=== PATIENT | female | born 1995 | race Caucasian/White ===

== ENCOUNTER 2022-01-23 23:16 | Emergency (ER) | payer MEDICAID, SELFPAY ==
[2022-01-23 23:22] VITALS: BP 124/77; PULSE 110; RESP 18; TEMP 36.2; O2SAT 97
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
== END 2022-01-24 01:24 | disposition home or self-care (01) ==
PROVIDERS: Emergency Provider Student in an Organized Health Care Education/Training Program
DX: O26.893 Other specified pregnancy related conditions, third trimester (principal); R10.31 Right lower quadrant pain; R10.32 Left lower quadrant pain; Z3A.36 36 weeks gestation of pregnancy
CPT/HCPCS: 99281; 99282

== ENCOUNTER 2022-01-24 16:24 | Outpatient (REF) | payer MEDICAID, SELFPAY ==
[2022-01-24 18:44] LABS: *AMPHETAMINES SCREEN URINE Negative (Negative); *BARBITURATES SCREEN URINE Negative (Negative); *BENZODIAZEPINES SCREEN URINE Negative (Negative); Cannabinoids THC Negative (Negative); Cocaine Screen,Urine Negative (Negative); METHADONE URINE SCREEN Negative (Negative); OPIATES URINE SCREEN Negative (Negative); Tricyclic Antidepressants Negative (Negative)
[2022-01-24 18:48] LABS: COMMENT (LAB VIEW ONLY) 66.09 mg/dL; PROTEIN 17.4 mg/dL; Prot/Crea Ur Ratio 0.26
[2022-01-27 11:58] LABS: HSV 1 DNA Result Negative (Negative); HSV 2 DNA Result Negative (Negative)
[2022-01-27 13:42] LABS: Chlamydia Result Negative (Negative); GC Result Negative (Negative)
[2022-01-30 14:31] LABS: Buprenorphine Negative ng/mL (Cutoff: 5.0); Norbuprenorphine Negative ng/mL (Cutoff: 2.5)
== END 2022-01-24 16:25 | disposition home or self-care (01) ==
LOC: LBN 16:24
PROVIDERS: Visit Provider Advanced Practice Midwife
DX: Z34.93 Encounter for supervision of normal pregnancy, unspecified, third trimester (principal); N90.89 Other specified noninflammatory disorders of vulva and perineum; Z20.2 Contact with and (suspected) exposure to infections with a predominantly sexual mode of transmission; N89.8 Other specified noninflammatory disorders of vagina; R60.9 Edema, unspecified
CPT/HCPCS: 80307; 87491; 87529; 87591; 82565; 84156; 87081; 87480; 87510; 87660

== ENCOUNTER → 2022-01-31 00:38 | Outpatient (CLI) | payer MEDICAID, SELFPAY ==
--- NOTE | 2022-01-31 07:45 | DI.US_ITS ---
Exam(s) US OB ROBERTH WEIGHT EXAM: US OB [facility]ERTH WEIGHT CLINICAL HISTORY: covid during ,U07.1. TECHNIQUE: Transabdominal obstetrical ultrasound performed. COMPARISON: No exams were available for comparison FINDINGS:: Number of fetuses: One. position: Breech Placental location: anterior. No evidence of previa. BIOMETRIC DATA: BPD: 94mm = 38+ 3 weeks HC: 343mm = 39+ 4 weeks AC: 334mm = 37+ 2 weeks FL: 73 mm = 37+ 2 weeks EFW: 3279 Gms = 72% Composite Age: 38+ 1 weeks EDC: February 10 Heart Rate: 152 BPM Amniotic fluid index: 19.8 cm. Amount of fluid is visually within normal limits. IMPRESSION: size and weight are within the high normal range. DATA REPOSITORY:
== END ==
PROVIDERS: Visit Provider Advanced Practice Midwife
DX: U07.1 COVID-19 (principal); O99.891 Other specified diseases and conditions complicating pregnancy
CPT/HCPCS: 76816

== ENCOUNTER 2022-01-31 14:39 | Outpatient (CLI) | payer MEDICAID, SELFPAY ==
[2022-01-31] VITALS (7 sets, daily range): BP systolic 116–128; BP diastolic 63–79; PULSE 92–100; RESP 16; TEMP 36.4
[2022-01-31 15:12] LABS: Source Nasal/Nares
--- NOTE | 2022-01-31 15:53 | W.OBNST ---
Date of service: 01/31/22 Time of Service: 15:53 NST Evaluation Reason for NST Reasons for Nonstress Test: GESTATIONAL HYPERTENSION Gestational Age Gestational Age in Weeks and Days: 37 Weeks and 1Days Test and Monitor Explained Test/Monitor Explained: Test Explained and Monitor Explained Vital Signs Blood Pressure: 128/79 Pulse: 100 Temperature: 97.5 F NST Information Date on Monitor: 01/31/22 Time on Monitor: 14:45 Date off Monitor: 01/31/22 Time off Monitor: 15:15 Total Time on Monitor: 30 NST Interventions: PO Hydration NST Evaluation Patient States Movement: Present FHR Baseline: 130 Variability: Moderate 6-25 bpm Accelerations: 15x15 Decelerations: None NST Results: Reactive Note NST Note Note: Breech presentation identified on US today. trace edema noted and negative urine protein by dip at the office. B.P. 130s/60s at the office. BP during NST 120s/60-70s. RTO 02/03 for External version NST Reviewed and Verified by: Rosa Ag
[2022-01-31 15:55] LABS: COVID-19 PCR Negative (Negative)
== END 2022-01-31 15:50 | disposition home or self-care (01) ==
LOC: BCD 14:40 → OBS 14:49
PROVIDERS: Visit Provider Advanced Practice Midwife
DX: O16.3 Unspecified maternal hypertension, third trimester (principal); O32.1XX0 Maternal care for breech presentation, not applicable or unspecified; Z3A.37 37 weeks gestation of pregnancy; Z01.818 Encounter for other preprocedural examination
CPT/HCPCS: 59025; 87635

== ENCOUNTER 2022-02-10 03:57 | Outpatient (CLI) | payer MEDICAID, SELFPAY ==
[2022-02-10 11:03] LABS: Source Nasal/Nares
[2022-02-10 11:45] LABS: HGB 12.2 g/dL (11.2-15.7); MCH 30.4 pg (27.0-33.0); MCHC 33.9 % (32.0-36.0); MCV 90 fL (80-95); MPV 9.9 fL (8.0-11.0); Platelet Count 197 10^3/uL (130-400); RBC 4.01 10^6/uL (3.93-5.22); RDW 15.1 % (11.7-14.6); RDW-SD 48.9 fL
[2022-02-10 15:10] LABS: COVID-19 PCR Negative (Negative)
== END 2022-02-10 03:58 | disposition home or self-care (01) ==
LOC: LBO 03:57
PROVIDERS: Visit Provider Obstetrics & Gynecology Gynecology
DX: Z01.818 Encounter for other preprocedural examination (principal)
CPT/HCPCS: 36415; 85027; 86850; 86900; 86901; 87635

== ENCOUNTER 2022-02-13 15:26 | Outpatient (REF) | payer MEDICAID, SELFPAY ==
[2022-02-13 15:41] LABS: Source Nasal/Nares
[2022-02-13 20:34] LABS: COVID-19 PCR Negative (Negative)
== END 2022-02-13 15:27 | disposition home or self-care (01) ==
LOC: LBN 15:26
PROVIDERS: Visit Provider Obstetrics & Gynecology
DX: Z01.818 Encounter for other preprocedural examination (principal); Z20.822 Contact with and (suspected) exposure to COVID-19
CPT/HCPCS: 87635

== ENCOUNTER 2022-02-13 15:54 | Inpatient (IN) | payer MEDICAID, SELFPAY ==
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
[2022-02-14] VITALS (12 sets, daily range): BP systolic 103–129; BP diastolic 64–82; PULSE 81–124; RESP 16–17; TEMP 36.6–37.7; TEMPC 36.3; O2SAT 98–100; BMI 38.5
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
[2022-02-14 12:21] LABS: HCT 36.7 % (36.0-46.0); HGB 12.4 g/dL (11.2-15.7); MCH 30.5 pg (27.0-33.0); MCHC 33.8 % (32.0-36.0); MCV 90 fL (80-95); MPV 10.3 fL (8.0-11.0); Platelet Count 193 10^3/uL (130-400); RBC 4.06 10^6/uL (3.93-5.22); RDW-SD 49.3 fL
[2022-02-14] MEDS: Lactated Ringers 1,000 ML 200 ML IV (12:25)
[2022-02-14] MEDS: Lidocaine 1% Multi-Dose 20 ML VIAL (12:26)
[2022-02-14] MEDS: Sodium Citrate 30 ML CUP PO (12:34)
[2022-02-14] MEDS: AZITHROMYCIN 500 MG in Normal Saline 250 ML 250 MG IVPB (13:25)
--- NOTE | 2022-02-14 13:25 | PLAC_PTH ---
PATIENT: Christina Roy LOC: OBS U#:[id number] AGE/SX: 26/F ROOM: OBS.303 RE02/13/[address]: Sandee Alexis DO : 1995 BED: A DIS: 02/17/2022 SPEC #: [id number] RECD: 02/14/22 18:09 STATUS: JASIEL REQ #: [id number] DELILAH: 02/14/22 13:[address]: Sandee Alexis DEPT: Surgical Specimen RECD BY: Mayda Preston ENTERED: 02/14/22 18:10 SP TYPE: PLAC OTHR DR: Unknown,Unknown Tissues: 1 - PLACENTA (3RD TRIMESTER) Procedures: GROSS AND MICRO LEVEL 5 Comments: [id number]
--- NOTE | 2022-02-14 14:04 | W.PM.OBCSECT ---
Date of service: 02/14/22 Time of Service: 14:04 Operative Note Operative Note Delivery Method: Scheduled and Primary NTSV>37 Weeks: No DATE OF PROCEDURE: 02/14/22 PRE-OP DIAGNOSES: at 39 weeks and 1 day, breech presentation POST-OP DIAGNOSES: same (With short umbilical cord) PROCEDURE: Primary low-transverse section SURGEON: Sandee Alexis Environmental Geologist: Nini Mejia Anesthesia: spinal Estimated blood loss (mL): 670 Pathology: other (Placenta) Complications: None Patient was transported to: floor Patient's condition: stable Indications: Term , declined external cephalic version, breech presentation Findings: Delivery of an viable male infant with Apgars 8 and 8. Short umbilical cord. Placenta with succenturiate lobe. Normal-appearing tubes, uterus, ovaries Procedure Description: Patient was taken the operating suite with an IV running where she is placed in a seated position. Spinal anesthesia administered, tested and found to be adequate. She was placed in the dorsal supine position with leftward tilt and prepped and draped in the usual sterile fashion including vaginal preparation. Andino catheter was inserted for continuous bladder drainage. A Pfannenstiel skin incision was made carried down to the underlying fascia. The fascia was then nicked in the midline and the fascial incision extended laterally. The rectus muscles identified split in the midline and the peritoneum identified tented up and entered sharply. Peritoneal incision was then extended superiorly and inferiorly and the bladder blade was inserted. The vesicouterine peritoneum was identified tented up and entered sharply and the bladder flap created. The bladder blade was then reinserted and a low transverse uterine incision was made with a scalpel in the midline and extended bluntly laterally. There is artificial rupture of membranes for clear fluid. The breech was delivered through the incision without difficulty to the point that you could see the scapular wing bilaterally. The right arm was swept across the chest and then was the left arm. In the flexed position the vertex was delivered through the incision. There was noted to be a three-vessel umbilical cord which was clamped x2 and cut and the infant was handed off to the waiting pediatric group. At this point cord blood sample was obtained and the placenta was manually expressed from the uterus. As of note there was a succenturiate lobe and an extremely short umbilical cord noted. At this point the uterus was exteriorized and cleared of all clot and debris. The uterine incision was then closed using 2-0 Vicryl suture in a 2 layer fashion with the first layer being running locked and the second being imbricating. Inspection of the uterine incision was found to be hemostatic. The uterus was returned to the abdomen after inspection of normal-appearing fallopian tubes and ovaries. The incision was then expected again and found to be hemostatic and the abdomen cleared of all clots and debris. The fascial incision was then closed using 0 Vicryl suture in a running fashion subcutaneous tissue irrigated with copious amounts of normal saline. Subcu space reapproximated with 3-0 Vicryl suture and the skin edge reapproximated with 4-0 undyed Monocryl. Steri-Strips and sterile dressing were placed. Uterus was firm and 3 cm below the umbilicus after surgery. Patient was returned to the The center in stable condition with a Andino catheter draining clear yellow urine. Complications: None apparent EBL: 670 mL Fluids: Crystalloid per anesthesia Findings: Delivery of a viable male from the manpreet breech presentation. normal-appearing tubes, ovaries, uterus. Short umbilical cord with placental succenturiate lobe. Pathology: Placenta for examination.
[2022-02-14] MEDS: Oxytocin/Normal Saline 30 UNIT/500 ML BAG 95 UNITS IV (14:23)
--- NOTE | 2022-02-14 14:58 | W.ANESPOSTOP ---
Postoperative Evaluation Date, Time and Location Date Performed: 02/14/22 Time Performed: 02:58 Patient Location: Obstetrics Vital Signs Most Recent Manually Entered Vital Signs: Adult Blood Pressure: 128/72 Heart Rate: 81 Respirations: 16 Oxygen Saturation (%): 99 Temperature (C): 36.3 C Pain Score (0-10 Scale): 0 Assessment Mental Status: Awake (Alert & Oriented to Patient Baseline) Airway and Respiratory Function: Patent airway with normal (patient baseline) respiratory exam Cardiovascular Function: Hemodynamically Stable Hydration Status: Adequately Hydrated Nausea & Vomiting: No Nausea or Vomiting Pain: Pt. Denies Any Pain Peripheral Nerve Block: Patient did not receive a nerve block
[2022-02-14] MEDS: Ketorolac 30 MG/ML VIAL IVP ×2 (15:00→20:50)
[2022-02-14] MEDS: Normal Saline Flush 10 ML SYR IVP ×2 (15:01→20:51)
--- NOTE | 2022-02-14 17:22 | W.PM.OBPNV1 ---
Date of service: 02/14/22 Time of Service: 17:22 Subjective Subjective Interval history: Patient seen and examined 0. She is doing well. She is responding to NSAIDs. We will have routine care. Follow-up CBC. All questions were answered. Exam Physical Exam Vital signs: Temp Pulse Resp BP Pulse Ox 98.4 F 98 H 16 122/82 100 02/14/22 14:46 02/14/22 14:46 02/14/22 14:46 02/14/22 14:46 02/14/22 14:46 Results Hemoglobin/Hematocrit: Hgb 12.4 g/dL (11.2-15.7) 02/14/22 12:10 Hct 36.7 % (36.0-46.0) 02/14/22 12:10 Abnormal Lab Findings: Abnormal Labs 02/14/22 12:10 WBC 13.50 H RDW 15.0 H
[2022-02-14] MEDS: Acetaminophen 325 MG TAB 650 MG PO ×2 (18:13→21:23)
[2022-02-14] MEDS: Docusate Sodium 100 MG CAP PO (20:52)
[2022-02-14] MEDS: Lactated Ringers 1,000 ML 120 ML IV (21:22)
[2022-02-15] VITALS (8 sets, daily range): BP systolic 105–120; BP diastolic 58–72; PULSE 89–121; RESP 14–22; TEMP 36.6–38.1; O2SAT 95–98
[2022-02-15] MEDS: oxyCODONE 5 MG TAB PO ×4 (00:36→22:40)
--- NOTE | 2022-02-15 01:06 | W.PM.OBPNV1 ---
Date of service: 02/15/22 Time of Service: 01:06 Assessment and Plan Assessment and plan (1) Status post primary low transverse section: Status: Acute Assessment and plan: Patient is postoperative day 1 status post primary for breech presentation. Postoperative course is suspicious for tachycardia, and slightly diminished blood pressure. Asymptomatic. Temperature is 100.6. My clinical impression set up at elect. Less likely infectious etiology. Recommend incentive spirometer at regular intervals. Ambulation when appropriate. CBC pending from morning. IV hydration. Continue close monitoring of vital signs, and urine output. Clinically stable. Subjective Subjective Interval history: Complications vital signs this evening consistent with elevated temperature at 100.6. Pulse 1 teens to 120s. Blood pressure is 100s over 60s. And evaluation of the patient. She is alert, oriented, no acute distress. She denies dizziness. She does have some abdominal discomfort related to her incision. She has no shortness of breath. Patient comments: No complaints, Incisional pain and Tolerating diet baby status: Doing well and Nursing well [place] feeding status: Exclusively breast feeding Exam Physical Exam Vital signs: Temp Pulse Resp BP Pulse Ox 100.6 F H 121 H 18 106/58 L 95 02/15/22 00:32 02/15/22 00:07 02/15/22 00:07 02/15/22 00:07 02/15/22 00:07 Vital Signs Reviewed: Yes Notable Details: Tachycardia with stable blood pressure. Urine output 500 cc over the cours Constitutional Constitutional: no acute distress and obese HEENT Exam HEENT Exam: Normal Neck Exam Neck Exam: Normal Respiratory Exam Respiratory Exam: Normal Cardiovascular Exam Cardiovascular Exam: Normal Abdominal Exam Comments: Soft, nontender Fundal Exam Fundus: Below Umbilicus and Firm Extremities Exam Extremity Exam: Normal and Edema (1+ bilateral); negative Calf Tenderness Results Hemoglobin/Hematocrit: Hgb 12.4 g/dL (11.2-15.7) 02/14/22 12:10 Hct 36.7 % (36.0-46.0) 02/14/22 12:10 Abnormal Lab Findings: Abnormal Labs 02/14/22 12:10 WBC 13.50 H RDW 15.0 H
[2022-02-15] MEDS: Acetaminophen 500 MG TAB 1000 MG PO (03:22)
[2022-02-15] MEDS: Ketorolac 30 MG/ML VIAL IVP ×2 (03:22→08:46)
[2022-02-15 06:31] LABS: Abs Immature Grans 0.13 10^3/uL (0.0-0.06); Absolute Basophil Count 0.02 10^3/uL (0.0-0.2); Absolute Eosinophil Count 0.03 10^3/uL (0.0-0.7); Absolute Lymphocyte Count 2.42 10^3/uL (1.2-3.4); Basophils % 0.1; Eosinophils % 0.2; HCT 25.2 % (36.0-46.0); HGB 8.4 g/dL (11.2-15.7); Immature Grans % 0.8; MCH 30.7 pg (27.0-33.0); MCHC 33.3 % (32.0-36.0); MCV 92 fL (80-95); MPV 10.5 fL (8.0-11.0); Monocytes % 6.9; Platelet Count 150 10^3/uL (130-400); RBC 2.74 10^6/uL (3.93-5.22); RDW-SD 49.6 fL; WBC 16.15 10^3/uL (4.4-10.8)
[2022-02-15 06:39] LABS: Absolute Monocyte Count 1.11 10^3/uL (0.1-0.8); Absolute Neutrophil Count 12.44 10^3/uL (1.2-6.7)
[2022-02-15] MEDS: Normal Saline Flush 10 ML SYR IVP (08:48)
--- NOTE | 2022-02-15 09:17 | W.PM.OBPNV1 ---
Date of service: 02/15/22 Time of Service: 09:17 Assessment and Plan Assessment and plan (1) Status post primary low transverse section: Status: Acute Assessment and plan: Postoperative day # status post primary low transverse section1. (2) Postoperative anemia: Status: Acute Assessment and plan: His hemoglobin is 8.4. Stable vital signs. Doubt Ongoing blood loss. Will ambulate, continue to monitor. Subjective Subjective Interval history: Patient seen and examined this morning. Doing well. Pain is well controlled. She has not been up out of bed yet, though has been sitting upright. She denies dizziness, nausea, vomiting. She has been passing gas. Patient's Mood: good baby status: Doing well and Nursing well [place] feeding status: Exclusively breast feeding Exam Physical Exam Vital signs: Temp Pulse Resp BP Pulse Ox 98.4 F 119 H 14 105/59 L 98 02/15/22 08:55 02/15/22 08:55 02/15/22 08:55 02/15/22 08:55 02/15/22 02:38 Vital Signs Reviewed: Yes Notable Details: Urine output. Tachycardia improving. Blood pressure stable. Constitutional Constitutional: no acute distress HEENT Exam HEENT Exam: Normal Neck Exam Neck Exam: Normal Respiratory Exam Respiratory Exam: Normal Cardiovascular Exam Cardiovascular Exam: Normal Abdominal Exam Abdomen: Tender Comments: Soft, active bowel sounds Fundal Exam Fundus: Below Umbilicus and Firm Extremities Exam Extremity Exam: Normal and Edema (2+ B/L) Neurological Exam Neurological Exam: Normal Psychiatric Exam Psychiatric Exam: Normal Results Hemoglobin/Hematocrit: Hgb 8.4 g/dL (11.2-15.7) L D 02/15/22 06:20 Hct 25.2 % (36.0-46.0) L 02/15/22 06:20 Abnormal Lab Findings: Abnormal Labs 02/14/22 02/15/22 12:10 06:20 WBC 13.50 H 16.15 H RBC 2.74 L Hgb 8.4 L D Hct 25.2 L RDW 15.0 H 15.0 H Absolute Neutrophils 12.44 H Absolute Monocytes 1.11 H
[2022-02-15] MEDS: Ibuprofen 600 MG TAB PO ×2 (13:59→22:21)
[2022-02-16 07:25] VITALS: BP 111/67; PULSE 106; RESP 19; TEMP 36.9; O2SAT 97
--- NOTE | 2022-02-16 07:47 | W.PM.OBPNV1 ---
Date of service: 02/16/22 Time of Service: 07:47 Assessment and Plan Assessment and plan (1) Status post primary low transverse section: Status: Acute Assessment and plan: Postoperative. Ambulate.. Anticipate discharge home tomorrow (2) Postoperative anemia: Status: Acute Assessment and plan: Stable vital signs. Asymptomatic Subjective Subjective Interval history: Patient seen and examined this morning. Doing well. Feeling better than yesterday. She has had her Andino catheter removed. She has been ambulatory and she is in the chair on occasion yesterday. She is voiding without difficulty. She has been having some flatus. She is tolerating regular diet and back pain medication. We discussed ongoing support with behavioral health and her health and wellness manager at the office. She is very happy to have that sort of intervention and and would be open to having a counselor. Patient's Mood: good baby status: Doing well and Nursing well Exam Physical Exam Vital signs: Temp Pulse Resp BP Pulse Ox 98.4 F 106 H 19 111/67 97 02/16/22 07:25 02/16/22 07:25 02/16/22 07:25 02/16/22 07:25 02/16/22 07:25 Vital Signs Reviewed: Yes Notable Details: Currently afebrile. Pulse is in a more normal range. BP stable Constitutional Constitutional: no acute distress HEENT Exam HEENT Exam: Normal Neck Exam Neck Exam: Normal Respiratory Exam Respiratory Exam: Normal Cardiovascular Exam Cardiovascular Exam: Normal Abdominal Exam Abdomen: Tender Comments: Soft, bowel sounds are present. Nondistended Fundal Exam Fundus: Below Umbilicus and Firm Extremities Exam Extremity Exam: Normal and Edema (2+ bilateral); negative Calf Tenderness Skin Exam Skin Exam: Normal Neurological Exam Neurological Exam: Normal Psychiatric Exam Psychiatric Exam: Normal Results Hemoglobin/Hematocrit: Hgb 8.4 g/dL (11.2-15.7) L D 02/15/22 06:20 Hct 25.2 % (36.0-46.0) L 02/15/22 06:20 Abnormal Lab Findings: Abnormal Labs 02/14/22 02/15/22 12:10 06:20 WBC 13.50 H 16.15 H RBC 2.74 L Hgb 8.4 L D Hct 25.2 L RDW 15.0 H 15.0 H Absolute Neutrophils 12.44 H Absolute Monocytes 1.11 H
[2022-02-16] MEDS: Acetaminophen 500 MG TAB 1000 MG PO ×2 (09:25→18:54)
[2022-02-16] MEDS: Ibuprofen 600 MG TAB PO ×2 (09:26→18:54)
[2022-02-16] MEDS: Docusate Sodium 100 MG CAP PO (11:48)
[2022-02-16 16:30] VITALS: BP 125/79; PULSE 119; RESP 18; TEMP 36.5; O2SAT 100
[2022-02-16 20:12] VITALS: BP 124/78; PULSE 78; RESP 18; TEMP 36.7; O2SAT 98
[2022-02-17] MEDS: Docusate Sodium 100 MG CAP PO ×2 (00:23→08:21)
[2022-02-17] MEDS: Ibuprofen 600 MG TAB PO ×3 (00:23→14:15)
[2022-02-17 00:30] VITALS: BP 132/84; PULSE 100; RESP 17; TEMP 36.6
--- NOTE | 2022-02-17 01:20 | NUR.NOTE ---
Nursing Note: Pt's bed replaced with m/s bed as the bed would not adjust properly. Pt transferred to new bed is more comfortable. SCD's replaced and both legs elevated slightly
[2022-02-17 04:30] VITALS: BP 135/80; PULSE 111; RESP 19; TEMP 36.9
[2022-02-17] MEDS: Acetaminophen 500 MG TAB 1000 MG PO (04:33)
[2022-02-17] MEDS: Acetaminophen 325 MG TAB (08:20)
--- NOTE | 2022-02-17 08:26 | OBPPV_ITS ---
Date of service: 02/17/22 Time of Service: 08:26 Assessment and Plan Assessment and plan (1) Status post primary low transverse section: Status: Acute Assessment and plan: Postoperative day #2 status post primary low transverse section complicated by postoperative anemia. She is doing well. Clinically improved. Vital signs are stable. Discharge home today. Follow-up in the office in 2 and 6 weeks. Prescriptions for Motrin, Percocet, Colace sent to the pharmacy. (2) Postoperative anemia: Status: Acute Exam Physical Exam Vital signs: Temp Pulse Resp BP Pulse Ox 98.4 F 111 H 19 135/80 98 02/17/22 04:30 02/17/22 04:30 02/17/22 04:30 02/17/22 04:30 02/16/22 20:12 Vital Signs Reviewed: Yes Constitutional Comments: Patient seen and examined this morning. Doing well. Feeling rested. Breast- feeding without difficulty. Discharge home today. HEENT Exam HEENT Exam: Normal Neck Exam Neck Exam: Normal Respiratory Exam Respiratory Exam: Normal Cardiovascular Exam Cardiovascular Exam: Normal Abdominal Exam Abdomen: Tender Comments: Incision clean, dry, intact Fundal Exam Fundus: Below Umbilicus and Firm Extremities Exam Extremity Exam: Edema (2+ bilateral); negative Calf Tenderness or Redness Skin Exam Skin Exam: Normal Psychiatric Exam Psychiatric Exam: Normal Results Hemoglobin/Hematocrit: Hgb 8.4 g/dL (11.2-15.7) L D 02/15/22 06:20 Hct 25.2 % (36.0-46.0) L 02/15/22 06:20 Abnormal Lab Findings: Abnormal Labs 02/14/22 02/15/22 12:10 06:20 WBC 13.50 H 16.15 H RBC 2.74 L Hgb 8.4 L D Hct 25.2 L RDW 15.0 H 15.0 H Absolute Neutrophils 12.44 H Absolute Monocytes 1.11 H
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
[2022-02-17] MEDS: oxyCODONE 5 MG TAB PO (14:15)
[2022-02-17 14:52] VITALS: BP 129/81; PULSE 103; RESP 16; TEMP 36.6; O2SAT 100
== END 2022-02-17 15:40 | disposition home or self-care (01) | DRG 787 ==
PROVIDERS: Admitting Provider Obstetrics & Gynecology; Visit Provider Obstetrics & Gynecology
PROC: 10D00Z1 Extraction of Products of Conception, Low, Open Approach (ICD-10-PCS; CPT 59514; principal; 2022-02-14 10:15)
DX: O32.1XX0 Maternal care for breech presentation, not applicable or unspecified (principal); J98.11 Atelectasis; Z37.0 Single live birth; Z3A.38 38 weeks gestation of pregnancy; Z86.16 Personal history of COVID-19; O12.04 Gestational edema, complicating childbirth; O99.344 Other mental disorders complicating childbirth; F32.A Depression, unspecified; O43.193 Other malformation of placenta, third trimester; O90.81 Anemia of the puerperium; D64.9 Anemia, unspecified; O99.53 Diseases of the respiratory system complicating the puerperium
CPT/HCPCS: 59514; 36415; 85027; 86900; 86901; 85025; 88307; J0456; J1580; J1885; J2370; J2590; J3490

== ENCOUNTER 2022-03-17 02:41 | Emergency (ER) | payer MEDICAID, SELFPAY ==
[2022-03-17 02:46] VITALS: BP 127/68; PULSE 90; RESP 18; TEMP 36.5; O2SAT 99
[2022-03-17] MEDS: Normal Saline 1,000 ML 1000 ML IV (02:56)
--- NOTE | 2022-03-17 03:00 | DI.CT_ITS ---
Exam(s) CT ABDOMEN PELVIS WO EXAM: CT ABDOMEN PELVIS WO CLINICAL HISTORY: right upper abdomen pain. TECHNIQUE: Imaging Protocol: Axial computed tomography images with coronal and sagittal reformatted images were created and reviewed. Oral: no COMPARISON: No exams were available for comparison FINDINGS: ABDOMEN: Lung Bases: Normal where visualized. Liver: Normal density. No measurable mass. Gallbladder and biliary tract: No radiodense calculus or dilation. Pancreas: Normal density, no abnormal calcifications or inflammatory process. Spleen: Normal. Kidneys: Normal size, contour and axis. No radiodense stones or obstructive uropathy. No masses seen. Adrenal glands: No masses seen. Lymph nodes: Within normal limits. Abdominal Aorta: Abdominal portion non-dilated. PELVIS: Bladder: Nearly empty, not well evaluated. Bowel: No obstruction or bowel wall thickening. Appendix normal. Moderate quantity of stool. Peritoneal cavity: No ascites, collection or mesenteric inflammatory response. Reproductive organs: Uterus mildly enlarged, recently . Bones: Within normal limits. Soft tissues: Mild stranding in the lower anterior abdominal wall fat consistent with recent section. No focal abscess or fluid collection. IMPRESSION: Mildly enlarged uterus consistent with recent status. No acute abnormality is identified. RADIATION DOSE DELIVERED: 1,118.18mGy.cm Total DLP DATA REPOSITORY: All CT scans at this facility are submitted to the National Radiology Data Registry (NRDR) Dose Index Registry (DIR) with the [employer] (A[employer]). RADIATION OPTIMIZATION: All CT scans at this facility use at least one of these dose optimization te chniques: automated exposure control; mA and/or kV adjustment per patient size (includes targeted exa ms where dose is matched to clinical indication); or iterative reconstruction.
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
[2022-03-17 03:10] LABS: Abs Immature Grans 0.02 10^3/uL (0.0-0.06); Absolute Basophil Count 0.01 10^3/uL (0.0-0.2); Absolute Eosinophil Count 0.17 10^3/uL (0.0-0.7); Absolute Lymphocyte Count 2.81 10^3/uL (1.2-3.4); Absolute Monocyte Count 0.57 10^3/uL (0.1-0.8); Absolute Neutrophil Count 3.59 10^3/uL (1.2-6.7); Basophils % 0.1; Eosinophils % 2.4; HCT 39.2 % (36.0-46.0); Immature Grans % 0.3; Lymphocytes % 39.2; MCH 29.7 pg (27.0-33.0); MCHC 33.2 % (32.0-36.0); MCV 90 fL (80-95); MPV 9.5 fL (8.0-11.0); Monocytes % 7.9; Neutrophils % 50.1; Platelet Count 227 10^3/uL (130-400); RBC 4.38 10^6/uL (3.93-5.22); RDW 12.5 % (11.7-14.6); RDW-SD 40.9 fL; WBC 7.17 10^3/uL (4.4-10.8)
[2022-03-17 03:17] LABS: ALT 28 U/L (14-59); AST 16 U/L (15-37); Albumin 3.6 g/dL (3.4-5.0); Alkaline Phosphatase 134 U/L (46-116); Anion Gap 6.9 mmol/L (3-11); BUN 21 mg/dL (7-18); Bilirubin, Direct 0.1 mg/dL (0.0-0.2); Bilirubin, Total 0.5 mg/dL (0.2-1.0); CO2 28.1 mmol/L (21.0-32.0); CREATININE 0.9 mg/dL (0.55-1.02); Chloride 105 mmol/L (98-107); Estimated GFR 90.98 (mL/min/1.73m2); Glucose 90 mg/dL (74-106); Lipase 163 U/L (73-393); Potassium 3.7 mmol/L (3.5-5.1); Sodium 140 mmol/L (136-145); Total Protein 7.1 g/dL (6.4-8.2)
[2022-03-17] MEDS: Mylanta Suspension 30 ML CUP PO (03:21)
[2022-03-17] MEDS: Acetaminophen 500 MG TAB 1000 MG PO (03:21)
[2022-03-17 03:24] LABS: Bilirubin Negative (Negative); Blood Moderate (Negative); Clarity Sl Cloudy (Clear); Glucose Negative (Negative); Ketones Negative (Negative); Leukocyte Esterase Moderate (Negative); Nitrite Negative (Negative); Specific Gravity 1.025 (1.005-1.025); Urobilinogen 0.2 EU/dL (Up TO 0.2)
[2022-03-17 03:33] LABS: Bacteria Few HPF (Negative); C & S Indicated? No/Sq. Contamination; Casts Negative LPF (Negative); Crystals Negative HPF (Negative); Epithelial Cells Many HPF (Negative); Mucus Negative (Negative); WBC 20-50 HPF (0-5)
--- NOTE | 2022-03-17 04:45 | DI.VRAD_ITS ---
PROCEDURE INFORMATION: Exam: CT Abdomen And Pelvis Without Contrast Exam date and time: 03/17/2022 3:58 AM Age: 26 years old Clinical indication: Abdominal pain; Localized; Right upper quadrant (ruq); Prior surgery; Surgery type: 1 month ago; Patient HX: Ruq pain TECHNIQUE: Imaging protocol: Computed tomography of the abdomen and pelvis without contrast. Radiation optimization: All CT scans at this facility use at least one of these dose optimization techniques: automated exposure control; mA and/or kV adjustment per patient size (includes targeted exams where dose is matched to clinical indication); or iterative reconstruction. COMPARISON: US OB [facility] WE[facility] 01/31/2022 1:20 PM FINDINGS: Lungs: Lung bases clear. Liver: Grossly unremarkable unenhanced liver. Gallbladder and bile ducts: Normal appearing gallbladder. No calcified gallstones. No biliary dilatation. Pancreas: Grossly unremarkable unenhanced pancreas. Spleen: Grossly unremarkable unenhanced spleen. Adrenal glands: Normal appearing adrenal glands. Kidneys and ureters: Grossly unremarkable unenhanced kidneys. Ureters partially obscured. No suspicious calcifications along the expected ureteral courses. Stomach and bowel: No oral contrast. Stomach partially distended with ingested material. No small bowel dilatation to suggest obstruction. Normal-appearing colon. No evidence of diverticulitis or colitis. Appendix: Fluid-filled appendix partially obscured by close apposition of adjacent small bowel loops but normal in caliber measuring 6 mm. Trace adjacent hazy fat stranding. Intraperitoneal space: Trace fluid in the deep pelvis. No free air. Vasculature: Normal caliber abdominal aorta. Lymph nodes: No pathologically enlarged mesenteric, retroperitoneal, or pelvic sidewall lymph nodes. Urinary bladder: Urinary bladder partially collapsed but grossly unremarkable, as seen. Reproductive: Anteverted uterus, mildly enlarged in keeping with the history of recent . Heterogeneous density in the anterior aspect of the lower uterine wall in the expected location of the incision. Ovaries partially obscured but normal in size. Bones/joints: No acute fracture seen among the bones of the abdomen or pelvis. Soft tissues: Diastasis recti. Small fat containing ventral hernia. Recent low transverse incision noted. No subcutaneous fluid collection or subcutaneous gas. IMPRESSION: 1. Fluid-filled appendix mildly distended to 6 mm, top normal for caliber. Mild adjacent hazy fat stranding. Early or mild appendicitis could perhaps have this appearance although clinical correlation is recommended as the imaging appearance is borderline. 2. Normal-appearing gallbladder. No calcified gallstones or biliary dilatation. 3. Trace fluid in the deep pelvis, nonspecific. Dictated and Authenticated by: Augutso Smith MD. Ordering:JADON Kimbrough MD
[2022-03-17 05:37] VITALS: BP 115/78; PULSE 63; RESP 17; TEMP 36.6; O2SAT 97
== END 2022-03-17 05:23 | disposition home or self-care (01) ==
PROVIDERS: Emergency Provider Emergency Medicine
DX: O90.89 Other complications of the puerperium, not elsewhere classified (principal); R10.11 Right upper quadrant pain; R10.13 Epigastric pain; Z98.890 Other specified postprocedural states
CPT/HCPCS: 80053; 83690; 96360; 96361; 99284; 74176; 81003; 81015; 82248; 85025; 99283

== ENCOUNTER 2022-06-10 06:11 | Day surgery (SDC) | payer MEDICAID, SELFPAY ==
[2022-06-10 06:34] VITALS: BP 116/73; PULSE 84; RESP 16; TEMP 36.6; O2SAT 98
--- NOTE | 2022-06-10 07:18 | PDOC.DSDIS_ITS ---
Date of service: 06/10/22 Time of Service: 07:18 Discharge Plan Disposition Patient Disposition: Home Condition: Good Discharge Details Reason For Visit: Left Index Finger Cyst Attending Provider: Irwin Meadows Primary Care Provider: Unknown,Unknown Home Meds and New Rx's Prescriptions: New acetaminophen 500 mg tablet 500 mg PO Q6H PRN PRN (Reason: pain) Qty: 40 3RF ibuprofen 600 mg tablet 600 mg PO TID PRN (Reason: pain) Qty: 30 3RF Continued cholecalciferol (vitamin D3) 50 mcg (2,000 unit) capsule 50 mcg PO DAILY PNV cmb#95-ferrous fumarate-FA [] 28 mg iron- 800 mcg Tablet 1 tab PO DAILY Discharge Instructions Additional Instructions: Activity: You may use the hand as tolerated. Gentle range of motion and use of hte finger is okay but avoid doing too much too soon. Medications: You should take Tylenol and Ibuprofen for pain relief. This rarely needs anything stronger. You may also apply ice as needed for comfort. Dressings: You should keep the initial dressing on for 2 days. After 2 days, you may remove the dressings and apply a bandaid. Referrals: Irwin Meadows MD [ [facility] STAFF PHYSICIAN] - Activity:: Elevate Remove Dressings/Wound Care:: 48 hours Shower/Bathe:: 48 hours Diet:: As Tolerated Discharge Orders Discharge Orders: Discharge Order (Routine); Ordered 06/10/22 Ordered By: Irwin Meadows
[2022-06-10] MEDS: Lidocaine 1% Pres-Free W/EPI 1/200,000 10 ML VIAL (07:35)
[2022-06-10] MEDS: Sodium Bicarbonate 50 MEQ/50 ML VIAL (07:35)
--- NOTE | 2022-06-10 07:42 | SKI_PTH ---
PATIENT: Christina Roy LOC: [facility] U#:[id number] AGE/SX: 26/F ROOM: RE06/10/[address]: Irwin Meadows MD : 1995 BED: DIS: 06/10/2022 SPEC #: [id number] RECD: 06/10/22 12:28 STATUS: JASIEL REQ #: [id number] DELILAH: 06/10/22 07:[address]: Irwin Meadows DEPT: Surgical Specimen RECD BY: Mayda Preston ENTERED: 06/10/22 12:29 SP TYPE: [facility]OLFGANG HERMOSILLO DR: Unknown,Unknown Tissues: 1 - SKIN CYST/TAG/DEBRIDEMENT Procedures: GROSS AND MICRO LEVEL 3 Comments: [id number]
[2022-06-10 07:50] VITALS: BP 121/87; PULSE 76; RESP 16; TEMP 36.5; O2SAT 99
--- NOTE | 2022-06-10 09:28 | W.PM.OP ---
Date of service: 06/10/22 Time of Service: 07:50 Operative Note Operative Note DATE OF PROCEDURE: 06/10/22 PRE-OP DIAGNOSIS: Left Index Finger Mass POST-OP DIAGNOSIS: same PROCEDURE: Excisional Biopsy of Left Index Finger Mass SURGEON: Irwin Meadows ANESTHESIA TYPE: Local By Surgeon Refer to Anesthesia Record ESTIMATED BLOOD LOSS: 5 PATHOLOGY: other (Samples of mass from left index finger) TOURNIQUET TIME: 0 COMPLICATIONS: None Patient was transported to: same day Patient's condition: stable Indications: I have seen Christina in clinic for symptoms of a mass about the left index finger. The mass persisted and caused pain to direct contact and with use. The symptoms had not responded to conservative measures. I discussed mass excision with the patient. I reviewed the risks of the procedure to include, but not limited to, bleeding, infection, pain, stiffness, recurrence, damage to nerves or vessels. Despite these risks, the patient elected to proceed. Procedure Description: Christina was greeted in the preoperative holding area where the correct side was identified and marked. The consent was reviewed with the patient and signed. All questions were answered. She was taken back to the operating room. The patient was placed into the supine position on the operating room table with the left arm on an arm board. All bony prominences were well padded. No prophylactic antibiotics were administered since this was a clean, elective hand surgical case. The left arm was then prepped with Chloraprep and draped in a standard fashion with stockinette and extremity drape. A timeout to confirm correct identity, side and site, procedure, allergies, anesthesia, and medical concerns was performed. A digital block was then performed using 1% lidocaine with epinephrine and buffered with sodium bicarbonate. This was allowed time to set up completely and was tested before proceeding with the case. A longitudinal incision was then made overlying the mass. The skin was incised sharply. The skin directly overlying this mass was very thin and and truly only encompassed some layers of epidermis. This was removed and the mass was identified. Full-thickness flaps were then elevated to expose it. There appeared to be a capsule but in trying to remove it it fell apart into pieces. These pieces were a fibrous gelatinous mix. There is no invasive characteristics. It measured about 4 mm in diameter. These pieces were removed and sent to pathology. The wound bed was then irrigated aggressively. Any other materials that appeared to be foreign in nature were removed with a rongeur. The skin was then closed using a #4-0 nylon in interrupted fashion. The finger was dressed with Xeroform, 4 x 4, conformer dressing. The patient tolerated the procedure well and was returned to the Same Day Surgery area in a stable condition suffering no known complication.
== END 2022-06-10 08:15 | disposition home or self-care (01) ==
PROVIDERS: Visit Provider Student in an Organized Health Care Education/Training Program
PROC: (CPT 26160; principal; 2022-06-10 07:30)
DX: L98.0 Pyogenic granuloma (principal)
CPT/HCPCS: 11420; 88304

== ENCOUNTER 2022-07-30 11:44 | Emergency (ER) | payer MEDICAID, SELFPAY ==
[2022-07-30 12:03] VITALS: BP 126/84; PULSE 103; RESP 16; TEMP 37.1; O2SAT 96
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
--- NOTE | 2022-07-31 20:05 | W.ED.FU ---
Date of service: 07/31/22 Time of Service: 20:05 Follow Up Plan: Patient called stating she is allergic to azithromycin and nearly all antibiotics. I counseled her as to a course of management without antibiotics for her pharyngitis. I have called in a one-time dose of dexamethasone to her pharmacy. She understands indications to seek reevaluation
== END 2022-07-30 13:15 | disposition home or self-care (01) ==
PROVIDERS: Emergency Provider Emergency Medicine
DX: J02.9 Acute pharyngitis, unspecified (principal)
CPT/HCPCS: 87880; 99283

== ENCOUNTER 2023-10-12 23:54 | Emergency (ER) | payer MEDICAID, SELFPAY ==
[2023-10-13 00:04] VITALS: BP 130/84; PULSE 72; RESP 16; TEMP 37.2; O2SAT 98
--- NOTE | 2023-10-13 00:15 | DI.RAD_ITS ---
Exam(s) XR KNEE RT 3V AP,LAT,KARLOS EXAM: XR KNEE RT 3V AP,LAT,KARLOS CLINICAL HISTORY: generalized pain after running. TECHNIQUE: 2D digital imaging was performed. COMPARISON: No exams were available for comparison FINDINGS: 3 views There is no evidence of fracture or obvious joint effusion. bone density normal. no osseous lesions . no joint space narrowing. no patellar displacement. IMPRESSION: No significant osseous findings. DATA REPOSITORY: RADIATION DOSE DELIVERED:
--- NOTE | 2023-10-13 00:15 | DI.RAD_ITS ---
Exam(s) XR KNEE LT 3V AP,LAT,KARLOS EXAM: XR KNEE LT 3V AP,LAT,KARLOS CLINICAL HISTORY: medial knee pain after running. TECHNIQUE: 2D digital imaging was performed. COMPARISON: CR,XR XR KNEE RT 3V AP,LAT,KARLOS from 10/13/2023 FINDINGS: 3 views No evidence of acute fracture or obvious joint effusion. Bone density normal. No osseous lesions. No degenerative changes. No radiopaque foreign body. IMPRESSION: No acute osseous findings in the knee. No obvious joint effusion. DATA REPOSITORY: RADIATION DOSE DELIVERED:
[2023-10-13] MEDS: Ibuprofen 800 MG TAB PO (00:29)
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
--- NOTE | 2023-10-13 01:50 | DI.VRAD_ITS ---
PROCEDURE INFORMATION: Exam: XR Right Knee Exam date and time: 10/13/2023 12:40 AM Age: 28 years old Clinical indication: Right; Patient HX: Generalized knee pain after running TECHNIQUE: Imaging protocol: Radiologic exam of the right knee. Views: 3 views. COMPARISON: No relevant prior studies available. FINDINGS: Bones/joints: No fracture. No dislocation. No bony erosion or destructive change. No joint effusion. Mild medial compartment narrowing. Soft tissues: No soft tissue air. No radiopaque foreign bodies. IMPRESSION: No acute osseous abnormality. If symptoms persist, follow-up imaging is advised. Dictated and Authenticated by: Luis E Zheng MD. Ordering:JASPER Medina MD
--- NOTE | 2023-10-13 01:51 | DI.VRAD_ITS ---
PROCEDURE INFORMATION: Exam: XR Left Knee Exam date and time: 10/13/2023 12:42 AM Age: 28 years old Clinical indication: Left; Patient HX: Medial knee pain after running TECHNIQUE: Imaging protocol: Radiologic exam of the left knee. Views: 3 views. COMPARISON: No relevant prior studies available. FINDINGS: Bones/joints: No fracture. No dislocation. No bony erosion or destructive change. No joint effusion. Mild medial compartment narrowing. Mild asymmetric sclerosis noted in the medial femoral condyle. No subchondral lucency is observed in the femoral condyles or tibial plateaus. Soft tissues: No soft tissue air. No radiopaque foreign bodies. IMPRESSION: No acute osseous abnormality. If symptoms persist, follow-up imaging is advised. Dictated and Authenticated by: Luis E Zheng MD. Ordering:JASPER Medina MD
== END 2023-10-13 02:28 | disposition home or self-care (01) ==
LOC: ER 10-13 02:19
PROVIDERS: Emergency Provider Student in an Organized Health Care Education/Training Program; PCP Nurse Practitioner Adult Health
DX: M25.562 Pain in left knee (principal); M25.561 Pain in right knee
CPT/HCPCS: 73562; 81025; 99283

== ENCOUNTER 2024-03-15 01:14 | Outpatient (CLI) | payer MEDICAID, SELFPAY ==
--- NOTE | 2024-03-15 | DI.US_ITS ---
Exam(s) US ABDOMEN LIMITED EXAM: US ABDOMEN LIMITED CLINICAL HISTORY: ABD PAIN UPPER, R10.10 TECHNIQUE: Ultrasound abdomen performed using standard protocol. COMPARISON: CT CT ABDOMEN PELVIS WO from 03/17/2022 FINDINGS: PANCREAS: Normal where visualized. LIVER: There is diffuse increased echogenicity of the liver consistent with fatty infiltration. Hepa topetal flow in the Portal Vein. The liver measures in 16.7 cm length. No evidence of a hepatic mass. GALLBLADDER: No evidence of cholelithiasis. No evidence of wall thickening. No pericholecystic fluid identified. BILIARY SYSTEM: Common bile duct measures < 7 mm. No intrahepatic biliary ductal dilation. PAULA'S SIGN: Negative. RIGHT KIDNEY: Kidney is normal in size. No evidence of renal calculi. No evidence of hydronephrosis. No renal mass or cyst identified. ASCITES: None seen. IMPRESSION: Hepatic steatosis. DATA REPOSITORY:
== END 2024-03-15 01:34 ==
LOC: DI 01:14
PROVIDERS: PCP Nurse Practitioner Adult Health; Visit Provider Nurse Practitioner Adult Health
DX: K76.0 Fatty (change of) liver, not elsewhere classified (principal)
CPT/HCPCS: 76705

== ENCOUNTER 2024-04-17 20:42 | Emergency (ER) | payer MEDICAID, SELFPAY ==
[2024-04-17 20:45] VITALS: BP 122/81; PULSE 86; RESP 15; TEMP 36.3; O2SAT 99
[2024-04-17 20:48] VITALS: BP 122/81; PULSE 86; RESP 15; TEMP 36.3; O2SAT 99
[2024-04-17 21:26] LABS: Abs Immature Grans 0.02 10^3/uL (0.0-0.06); Absolute Basophil Count 0.03 10^3/uL (0.0-0.2); Absolute Eosinophil Count 0.15 10^3/uL (0.0-0.7); Absolute Lymphocyte Count 3.47 10^3/uL (1.2-3.4); Absolute Monocyte Count 0.59 10^3/uL (0.1-0.8); Absolute Neutrophil Count 4.69 10^3/uL (1.2-6.7); Basophils % 0.3 %; Eosinophils % 1.7 %; HCT 43.2 % (36.0-46.0); HGB 14.3 g/dL (11.2-15.7); Immature Grans % 0.2 %; Lymphocytes % 38.8 %; MCH 29.6 pg (27.0-33.0); MCHC 33.1 % (32.0-36.0); MCV 89 fL (80-95); MPV 9.3 fL (8.0-11.0); Monocytes % 6.6 %; Neutrophils % 52.4 %; Platelet Count 285 10^3/uL (130-400); RBC 4.83 10^6/uL (3.93-5.22); RDW 12.5 % (11.7-14.6); RDW-SD 41.4 fL; WBC 8.95 10^3/uL (4.4-10.8)
[2024-04-17] MEDS: Ondansetron 4 MG/2 ML VIAL IVP (21:27)
[2024-04-17] MEDS: ACETAMINOPHEN 1,000 MG/100 ML BAG 400 MG IVPB (21:27)
[2024-04-17 21:32] LABS: Bilirubin Negative (Negative); Blood Moderate (Negative); Clarity Sl Cloudy (Clear); Glucose Negative (Negative); Ketones Negative (Negative); Leukocyte Esterase Negative (Negative); Nitrite Negative (Negative); Specific Gravity 1.025 (1.005-1.025); Urobilinogen 0.2 mg/dL (Up to 0.2)
[2024-04-17 21:44] LABS: ALT 41 U/L (14-59); AST 93 U/L (15-37); Albumin 3.7 g/dL (3.4-5.0); Alkaline Phosphatase 75 U/L (46-116); Anion Gap 10.3 mmol/L (3-11); BUN 15 mg/dL (7-18); Bacteria Few HPF (Negative); CO2 27.7 mmol/L (21.0-32.0); CREATININE 1.1 mg/dL (0.55-1.02); Chloride 106 mmol/L (98-107); Crystals Few Amorphous HPF (Negative); Epithelial Cells Rare HPF (Negative); Estimated GFR 70.63 (mL/min/1.73m2); Glucose 93 mg/dL (74-106); Lipase 37 U/L (16-77); Potassium 3.5 mmol/L (3.5-5.1); Sodium 144 mmol/L (136-145); WBC 0-2 HPF (0-5)
[2024-04-17 21:45] LABS: C & S Indicated? No; Casts Negative LPF (Negative); Mucus Moderate (Negative)
[2024-04-17 21:50] LABS: Calcium 9.6 mg/dL (8.5-10.1)
[2024-04-17] MEDS: Famotidine 20 MG TAB 40 MG PO (22:09)
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
== END 2024-04-17 22:09 | disposition home or self-care (01) ==
PROVIDERS: Emergency Provider Physician Assistant; PCP Nurse Practitioner Adult Health
DX: K82.8 Other specified diseases of gallbladder (principal); R10.10 Upper abdominal pain, unspecified
CPT/HCPCS: 36415; 80053; 81025; 83690; 96365; 96375; 99284; 81003; 81015; 85025; J0131; J2405

== ENCOUNTER 2024-04-18 13:03 | Emergency (ER) | payer MEDICAID, SELFPAY ==
[2024-04-18 13:03] VITALS: BP 139/101; PULSE 78; RESP 14; TEMP 37; O2SAT 98
[2024-04-18 13:26] VITALS: BP 118/74; PULSE 74; RESP 16; O2SAT 100
[2024-04-18 13:35] LABS: Bilirubin Negative (Negative); Blood Large (Negative); Clarity Sl Cloudy (Clear); Glucose Negative (Negative); Ketones Negative (Negative); Leukocyte Esterase Negative (Negative); Nitrite Negative (Negative); Specific Gravity >= 1.030 (1.005-1.025); Urobilinogen 0.2 mg/dL (Up to 0.2); pH 5.5 (5-8)
[2024-04-18 13:43] LABS: RBC >50 HPF (0-2); WBC 0-2 HPF (0-5)
[2024-04-18 13:45] LABS: Bacteria Few HPF (Negative); C & S Indicated? No; Casts Negative LPF (Negative); Crystals Negative HPF (Negative); Epithelial Cells Moderate HPF (Negative); Mucus Negative (Negative)
[2024-04-18 13:49] LABS: Abs Immature Grans 0.02 10^3/uL (0.0-0.06); Absolute Basophil Count 0.02 10^3/uL (0.0-0.2); Absolute Eosinophil Count 0.05 10^3/uL (0.0-0.7); Absolute Lymphocyte Count 2.18 10^3/uL (1.2-3.4); Absolute Monocyte Count 0.42 10^3/uL (0.1-0.8); Absolute Neutrophil Count 4.23 10^3/uL (1.2-6.7); Basophils % 0.3 %; Eosinophils % 0.7 %; HCT 46.4 % (36.0-46.0); HGB 15.1 g/dL (11.2-15.7); Immature Grans % 0.3 %; Lymphocytes % 31.5 %; MCH 29.4 pg (27.0-33.0); MCHC 32.5 % (32.0-36.0); MCV 90 fL (80-95); MPV 9.4 fL (8.0-11.0); Monocytes % 6.1 %; Neutrophils % 61.1 %; Platelet Count 289 10^3/uL (130-400); RBC 5.14 10^6/uL (3.93-5.22); RDW 12.3 % (11.7-14.6); RDW-SD 40.9 fL; WBC 6.92 10^3/uL (4.4-10.8)
[2024-04-18 14:01] LABS: ALT 47 U/L (14-59); AST 101 U/L (15-37); Alkaline Phosphatase 78 U/L (46-116); Anion Gap 10.2 mmol/L (3-11); BUN 12 mg/dL (7-18); Bilirubin, Total 0.58 mg/dL (0.2-1.0); CO2 26.8 mmol/L (21.0-32.0); CREATININE 1.1 mg/dL (0.55-1.02); Calcium 9.5 mg/dL (8.5-10.1); Chloride 105 mmol/L (98-107); Estimated GFR 70.63 (mL/min/1.73m2); Glucose 79 mg/dL (74-106); Lipase 47 U/L (16-77); Potassium 3.8 mmol/L (3.5-5.1); Sodium 142 mmol/L (136-145); Total Protein 8.5 g/dL (6.4-8.2)
--- NOTE | 2024-04-18 14:01 | DI.CT_ITS ---
Exam(s) CT ABDOMEN PELVIS W EXAM: CT ABDOMEN PELVIS W CLINICAL HISTORY: abdominal pain epigastric. TECHNIQUE: Imaging Protocol: Axial computed tomography images with coronal and sagittal reformatted images were created and reviewed CONTRAST MATERIAL: Intravenous: Omnipaque 350 Contrast volume:85 ml Oral: / no COMPARISON: CT CT ABDOMEN PELVIS WO from 03/17/2022 FINDINGS: ABDOMEN and PELVIS: Lung Bases: No acute findings. Liver: Normal density. No suspicious mass. Gallbladder and biliary tract: No radiodense calculus. No biliary dilation. Pancreas: Normal density. No abnormal calcifications or inflammatory process. No evidence of mass. Spleen: Normal. Kidneys: Normal size, contour and axis. No radiodense stones. No obstructive uropathy. No suspicious masses seen. Adrenal glands: No masses seen. Vasculature: Abdominal aorta non-dilated. Soft tissues: Unremarkable. Bladder: No gross wall thickening. No calculi.No focal mass. Bowel: No obstruction. No bowel wall thickening. Appendix normal. Normal quantity of stool. Peritoneal cavity: No ascites. No focal collection. No mesenteric inflammatory response. Bones: Unremarkable for age. Reproductive organs: Unremarkable. Lymph nodes: No pathologically enlarged lymph nodes. IMPRESSION:: No acute abnormality in the abdomen or pelvis. RADIATION DOSE DELIVERED: 583.86mGy.cm Total DLP DATA REPOSITORY: All CT scans at this facility are submitted to the National Radiology Data Registry (NRDR) Dose Index Registry (DIR) with the [employer] ([employer]). RADIATION OPTIMIZATION: All CT scans at this facility use at least one of these dose optimization te chniques: automated exposure control; mA and/or kV adjustment per patient size (includes targeted exa ms where dose is matched to clinical indication); or iterative reconstruction.
[2024-04-18] MEDS: Normal Saline - Diluent 50 ML VIAL IJ (14:22)
[2024-04-18] MEDS: Omnipaque 350 MG/ML 100 ML BTL 85 ML IJ (14:24)
[2024-04-18 14:32] VITALS: BP 149/96; PULSE 74; O2SAT 100
[2024-04-18] MEDS: Normal Saline 1,000 ML 1000 ML IV (14:33)
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
[2024-04-18 16:01] VITALS: BP 126/67; PULSE 70; PULSE 71; RESP 20; O2SAT 100
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
[2024-04-18 16:27] VITALS: BP 135/74; PULSE 75; RESP 13; TEMP 37.2; O2SAT 100
== END 2024-04-18 16:37 | disposition home or self-care (01) ==
PROVIDERS: Emergency Provider Student in an Organized Health Care Education/Training Program; PCP Nurse Practitioner Adult Health
DX: R10.10 Upper abdominal pain, unspecified (principal)
CPT/HCPCS: 80053; 83690; 96360; 96361; 99285; 74177; 81003; 81015; 85025; J3490

== ENCOUNTER 2024-04-20 09:33 | Day surgery (SDC) | payer MEDICAID, SELFPAY ==
--- NOTE | 2024-04-19 16:36 | W.PM.DSUDISC ---
Date of service: 04/20/24 Time of Service: 12:50 Discharge Plan Disposition Patient Disposition: Home Condition: Good Discharge Details Reason For Visit: Laparoscopic cholecystectomy Attending Provider: Gio Washington Primary Care Provider: Layla Mendoza Home Meds and New Rx's Prescriptions: Continued cholecalciferol (vitamin D3) 50 mcg (2,000 unit) capsule 50 mcg PO DAILY norgestimate-ethinyl estradiol [Sprintec (28)] 0.25-35 mg-mcg tablet 1 tab PO DAILY Qty: 84 3RF acetaminophen 500 mg tablet 500 mg PO Q6H PRN PRN (Reason: pain) Qty: 40 3RF ibuprofen 600 mg tablet 600 mg PO TID PRN (Reason: pain) Qty: 30 3RF albuterol sulfate [Ventolin HFA] 90 mcg/actuation HFA aerosol inhaler 2 puff INHALATION Q4H PRN Patient Comments: INHALE 2 PUFFS BY MOUTH EVERY 6 HOURS NEEDED DIRECTED FOR ASTHMA/ WHEEZING epinephrine [EpiPen 2-Warren] 0.3 mg/0.3 mL auto-injector 0.3 ml IM ONCE PRN Patient Comments: Use 1 pen injector intramuscularly as needed bupropion HCl 300 mg tablet extended release 24 hr 300 mg PO DAILY Patient Comments: TAKE ONE TABLET BY MOUTH EVERY DAY FOR MOOD famotidine [Pepcid] 20 mg tablet 20 mg PO BID Qty: 20 0RF sucralfate [Carafate] 1 gram tablet 1 g PO BID Qty: 30 0RF omeprazole magnesium [Prilosec OTC] 20 mg tablet,delayed release (DR/EC) 20 mg PO DAILY 28 Days Qty: 28 0RF Discharge Instructions Instructions: Cholecystectomy, Laparoscopic Surgery Additional Instructions: Christina, it was very nice meeting you, and having a chance to see your family here in the hospital again. Hopefully, this operation will provide relief for the discomfort you have been experiencing. Everything went very smoothly in the operating room, we are able to get your gallbladder out just as we discussed. Expect to have some bruising around the incisions over the next few days, that is extremely common and nothing to worry about. May also be the case that you might experience a little bit of diarrhea in the days to come. If that is the case, then be careful with any fats in your diet. Alternatively, if you are doing well, and tolerating regular food, you do not need to avoid anything in particular. You should be up and moving around a little more more each day. Be careful with your heavy lifting.as I mentioned, keep the lifting less than a gallon of milk until we see each other in the office. Assuming you are feeling well at that point, then we will start to liberate your activity and get you back to normal. If you need anything, or have any questions at all, please do not hesitate to ask. 1. Resume all of your regular medications. 2. Alternate [id number] Tylenol and ibuprofen every 6 hours for the first 2 days, then use it as needed. Use the prescription for tramadol if needed for more severe pain.. 3. Alternate heating pads and ice packs over the incisions or any areas of pain. 4. Leave bandages in place for 24 hours, then remove. 5. Shower with warm soapy water. Pat dry. Use bandaids if needed to protect your clothing. 6. No soaking or tub baths until I see you in the office. 7. No heavy lifting until I see you in the office. 8. Call the office (or go directly to the emergency room after hours) if you notice any of the following: Develop chills (warm to touch), or if you have a thermometer and your temperature is above 101 Difficulty breathing or difficultly swallowing Persistent vomiting Any bleeding ? exceeding one tablespoon 9. Call your physician if the site where your intravenous was started becomes red, swollen, painful, and warm to touch. Referrals: Gio Washington MD [ [facility] STAFF PHYSICIAN] - (May 03 at 9:15 AM ) Activity:: No heavy lifting Remove Dressings/Wound Care:: 24 hours Shower/Bathe:: 24 hours Diet:: As Tolerated Discharge Orders Discharge Orders: Discharge Order (Routine); Ordered 04/19/24 Ordered By: Gio Washington DS: Diagnosis Discharge Diagnosis (1) Biliary dyskinesia: Status: Acute Asessment and Plan: Status post laparoscopic cholecystectomy; outpatient follow-up May 03 at 9:15 AM
--- NOTE | 2024-04-19 16:38 | ROE_ITS ---
Date of service: 04/20/24 Time of Service: 12:53 Operative Note Operative Note DATE OF PROCEDURE: 04/20/24 PRE-OP DIAGNOSIS: Biliary dyskinesia POST-OP DIAGNOSIS: same PROCEDURE: Laparoscopic cholecystectomy SURGEON: Gio Washington EPITAXIAL REACTOR TECHNICIAN: Nini Mejia ANESTHESIA TYPE: General LMA/ETT Refer to Anesthesia Record ESTIMATED BLOOD LOSS: 25 PATHOLOGY: other (Gallbladder) COMPLICATIONS: None Patient was transported to: PACU Patient's condition: stable Indications: Pj is a 28-year-old girl with symptomatic biliary colic. HIDA scan demonstrated an ejection fraction less than 35%, and she experienced pain during gallbladder stimulation as part of the study, supporting the diagnosis of biliary dyskinesia. Findings: Generally normal-appearing gallbladder Procedure Description: After satisfactory induction of general anesthesia, I prepped and draped the abdomen in usual fashion. Next, I began with a periumbilical incision. I dissected down to the fascia and elevated it with Josi clamps. I incised it sharply. Next, I passed a 5 mm operating port in the umbilical site. This was done under the direct vision of the laparoscope, and direct peritoneal entry was observed. The peritoneum was then insufflated. There was no evidence of injury created upon entry. I then placed the patient in some reverse Trendelenburg and left side down positioning. Then, with the assistance of the laparoscope, I used local anesthetic to anesthetize the midepigastric and 2 right upper quadrant port sites. I passed a 5 mm port in the right abdomen, and transition to the camera to this location. The umbilical port was then upsized to 12 mm under the vision of the scope, and I moved the camera back to the umbilical position before passing 2 more ports, 1 in the mid epigastrium, and 1 in the right hemiabdomen. I then grasped the gallbladder fundus and elevated cephalad. With the assistance of indocyanine green visualization, I began by dissecting the gallbladder infundibulum. I worked in a lateral to medial fashion. Once I skeletonized the cystic duct and cystic artery, with a satisfactory critical view of safety, I doubly clipped and divided them. I then used electrocautery to dissect the gallbladder off the gallbladder fossa. I passed the gallbladder into an Endo Catch bag and removed it by way of the umbilical site. I examined the surgical field. It was hemostatic. The umbilical port site was closed with a Tez Dumont to port closure system. The remaining ports were all removed. The sites were irrigated, and the skin was closed with subcuticular stitches. Bandages were applied, patient was awakened from anesthesia, and transferred to the recovery unit.
[2024-04-20] VITALS (22 sets, daily range): BP systolic 117–141; BP diastolic 72–88; PULSE 83–98; RESP 18–45; TEMP 35.7–36.8; O2SAT 86–98; BMI 31.8
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
[2024-04-20] MEDS: Gabapentin 300 MG CAP 600 MG PO (10:28)
[2024-04-20] MEDS: Acetaminophen 500 MG TAB 1000 MG PO (10:28)
[2024-04-20] MEDS: Celecoxib 200 MG CAP PO (10:28)
[2024-04-20] MEDS: Lactated Ringers 1,000 ML 80 ML IV (11:02)
[2024-04-20] MEDS: Indocyanine green 25 MG VIAL 5 MG IVP (11:03)
[2024-04-20] MEDS: CLINDAMYCIN 600 MG/50 ML BAG 100 MG IVPB (11:55)
[2024-04-20] MEDS: Bupivacaine 0.25% Pres-Free W/EPI 30 ML VIAL (12:42)
--- NOTE | 2024-04-20 12:45 | GB_PTH ---
PATIENT: Christina Roy LOC: [facility] U#:[id number] AGE/SX: 28/F ROOM: RE04/20/[address]: Gio Washingtno MD : [id number] BED: DIS: 04/20/2024 SPEC #: [id number] RECD: 04/20/24 17:37 STATUS: JASIEL REQ #: [id number] DELILAH: 04/20/24 12:[address]: Gio Washington DEPT: Surgical Specimen RECD BY: Mayda Preston ENTERED: 04/20/24 17:37 SP TYPE: GB OTHR DR: Layla Mendoza Tissues: 1 - GALLBLADDER Procedures: GROSS AND MICRO LEVEL 3 Comments: [id number]
[2024-04-20] MEDS: fentaNYL 100 MCG/2 ML VIAL IVP (13:55)
--- NOTE | 2024-04-20 14:10 | W.ANESPOSTOP ---
Postoperative Evaluation Date, Time and Location Date Performed: 04/20/24 Time Performed: 14:10 Patient Location: PACU Vital Signs Most Recent Imported Vital Signs: Most Recent Vital Signs Temp Pulse Resp BP Pulse Ox 36.5 C 91 H 20 122/78 97 04/20/24 14:05 04/20/24 14:05 04/20/24 14:05 04/20/24 14:05 04/20/24 14:05 Pain Score Most Recent Pain Score: Most Recent Pain Score Pain Level 4 04/20/24 14:05 Assessment Mental Status: Awake (Alert & Oriented to Patient Baseline) Airway and Respiratory Function: Patent airway with normal (patient baseline) respiratory exam Cardiovascular Function: Hemodynamically Stable Hydration Status: Adequately Hydrated Nausea & Vomiting: No Nausea or Vomiting Pain: Pt. Denies Any Pain Peripheral Nerve Block: Patient did not receive a nerve block
[2024-04-20] MEDS: traMADol 50 MG TAB PO (14:51)
== END 2024-04-20 15:42 | disposition home or self-care (01) ==
PROVIDERS: PCP Nurse Practitioner Adult Health; Visit Provider Surgery
PROC: 0FT44ZZ Resection of Gallbladder, Percutaneous Endoscopic Approach (ICD-10-PCS; CPT 47562; principal; 2024-04-20 10:45)
DX: K82.8 Other specified diseases of gallbladder (principal)
CPT/HCPCS: 47562; 81025; 88304; J0737; J1100; J1200; J2250; J2405; J2704; J3010

== ENCOUNTER 2024-10-01 13:04 | Emergency (ER) | payer MEDICAID, SELFPAY ==
[2024-10-01 13:12] VITALS: BP 132/88; PULSE 84; RESP 16; TEMP 36.6; O2SAT 97
--- NOTE | 2024-10-01 13:30 | DI.CT_ITS ---
Exam(s) CT TEMPORAL BONE WO CT HEAD WO EXAM: CT HEAD WO CLINICAL HISTORY: fall onto R. ear, ruptured TM. TECHNIQUE: Imaging Protocol: Axial computed tomography images with coronal and sagittal reformatted images were created and reviewed COMPARISON: CT IAC WO [facility](Adult) from 10/01/2024 FINDINGS: Ventricles and Extra axial spaces: Normal in size and morphology for the patient's age. Hemorrhage: None. Cerebral parenchyma: No evidence of acute infarct or mass. Midline shift: None. Brainstem/Cerebellum: Normal. Calvarium: Normal. Visualized Paranasal sinuses:Clear. Mastoids: Clear. No evidence of fracture. The ossicles appear intact bilaterally. Arm the internal and external auditory canals are clear bilaterally. Soft Tissues: Unremarkable. ORBITS: Unremarkable. PITUITARY: Not enlarged. IMPRESSION: No acute intracranial process. No evidence of temporal bone fracture or other abnormality. RADIATION DOSE DELIVERED: Total DLP DATA REPOSITORY: All CT scans at this facility are submitted to the National Radiology Data Registry (NRDR) Dose Index Registry (DIR) with the [employer] (A[employer]). RADIATION OPTIMIZATION: All CT scans at this facility use at least one of these dose optimization te chniques: automated exposure control; mA and/or kV adjustment per patient size (includes targeted exa ms where dose is matched to clinical indication); or iterative reconstruction.
--- NOTE | 2024-10-01 13:30 | DI.CT_ITS ---
Exam(s) CT TEMPORAL BONE WO CT HEAD WO EXAM: CT HEAD WO CLINICAL HISTORY: fall onto R. ear, ruptured TM. TECHNIQUE: Imaging Protocol: Axial computed tomography images with coronal and sagittal reformatted images were created and reviewed COMPARISON: CT IAC WO [facility](Adult) from 10/01/2024 FINDINGS: Ventricles and Extra axial spaces: Normal in size and morphology for the patient's age. Hemorrhage: None. Cerebral parenchyma: No evidence of acute infarct or mass. Midline shift: None. Brainstem/Cerebellum: Normal. Calvarium: Normal. Visualized Paranasal sinuses:Clear. Mastoids: Clear. No evidence of fracture. The ossicles appear intact bilaterally. Arm the internal and external auditory canals are clear bilaterally. Soft Tissues: Unremarkable. ORBITS: Unremarkable. PITUITARY: Not enlarged. IMPRESSION: No acute intracranial process. No evidence of temporal bone fracture or other abnormality. RADIATION DOSE DELIVERED: Total DLP DATA REPOSITORY: All CT scans at this facility are submitted to the National Radiology Data Registry (NRDR) Dose Index Registry (DIR) with the [employer] (ACR). RADIATION OPTIMIZATION: All CT scans at this facility use at least one of these dose optimization te chniques: automated exposure control; mA and/or kV adjustment per patient size (includes targeted exa ms where dose is matched to clinical indication); or iterative reconstruction.
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
[2024-10-01 14:14] VITALS: BP 129/88; PULSE 76; RESP 12; O2SAT 99
[2024-10-01 15:23] VITALS: BP 129/86; PULSE 76; RESP 14; O2SAT 99
--- NOTE | 2024-10-01 15:36 | DI.VRAD_ITS ---
PROCEDURE INFORMATION: Exam: CT Head Without Contrast Exam date and time: 10/01/2024 1:56 PM Age: 29 years old Clinical indication: Injury or trauma; Blunt trauma (contusions or hematomas); Other: Fall onto R. Ear, ruptured tm TECHNIQUE: Imaging protocol: Computed tomography of the head without contrast. COMPARISON: CT HEAD WO 10/01/2024 1:56 PM FINDINGS: Brain: Normal. No hemorrhage. Unremarkable white matter. No mass effect. Cerebral ventricles: No ventriculomegaly. Paranasal sinuses: Visualized sinuses are unremarkable. No fluid levels. Mastoid air cells: Visualized mastoid air cells are well aerated. Bones: Unremarkable. No acute fracture. Soft tissues: Unremarkable. External auditory canals: Thin-section axial images were included in showed no gross abnormality IMPRESSION: No acute intracranial abnormality. Dictated and Authenticated by: Sonia Styles MD. Orderin [facility] Gerhard Trujillo MD
--- NOTE | 2024-10-01 16:07 | DI.VRAD_ITS ---
PROCEDURE INFORMATION: Exam: CT Temporal Bones Without Contrast. Exam date and time: 10/01/2024 2:05 PM Age: 29 years old Clinical indication: Injury or trauma; Blunt trauma (contusions or hematomas) and other: Fall onto R. Ear, ruptured tm TECHNIQUE: Imaging protocol: Computed tomography of the temporal bones without contrast. COMPARISON: CT TEMPORAL BONE WO 10/01/2024 1:56 PM FINDINGS: Right inner ear: Normal. Right ossicles and middle ear: Normal. The middle ear ossicles are intact. Right external auditory canal: Normal. Right facial nerve canal: Normal. Right jugular foramen: No jugular dehiscence. Right carotid canal: No aberrant carotid canal. Right mastoid air cells: Normal. No mastoid effusions. Left inner ear: Normal. Left ossicles and middle ear: Normal. The middle ear ossicles are intact. Left external auditory canal: Normal. Left facial nerve canal: Normal. Left jugular foramen: No jugular dehiscence. Left carotid canal: No aberrant carotid canal. Left mastoid air cells: Normal. No mastoid effusions. Soft tissues: Unremarkable. IMPRESSION: No acute findings. Dictated and Authenticated by: Sonia Styles MD. Orderin [facility] Gerhard Trujillo MD
== END 2024-10-01 16:23 | disposition home or self-care (01) ==
PROVIDERS: Emergency Provider Emergency Medicine; PCP Nurse Practitioner Adult Health
DX: H72.91 Unspecified perforation of tympanic membrane, right ear (principal); X58.XXXA Exposure to other specified factors, initial encounter
CPT/HCPCS: 99284; 70450; 70480; 99283

== ENCOUNTER 2024-11-15 08:37 | Emergency (ER) | payer MEDICAID, SELFPAY ==
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
[2024-11-15 08:46] VITALS: BP 126/81; PULSE 87; RESP 18; TEMP 36.6; O2SAT 97
== END 2024-11-15 09:45 | disposition home or self-care (01) ==
PROVIDERS: Emergency Provider Emergency Medicine; PCP Nurse Practitioner Adult Health
DX: J32.9 Chronic sinusitis, unspecified (principal)
CPT/HCPCS: 99283 ×2

== ENCOUNTER 2025-01-16 14:38 | Emergency (ER) | payer MEDICAID, SELFPAY ==
[2025-01-16 14:46] VITALS: BP 126/85; PULSE 84; RESP 14; TEMP 36.5; O2SAT 95
[2025-01-16 14:51] VITALS: BP 126/85; PULSE 84; RESP 14; TEMP 36.5; O2SAT 95
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
[2025-01-16 15:39] LABS: Glucose Negative (Negative)
[2025-01-16 15:46] LABS: RBC 20-50 HPF (0-2); WBC >50 HPF (0-5)
[2025-01-16 16:04] VITALS: BP 128/83; PULSE 91; RESP 18; TEMP 36.7; O2SAT 97
== END 2025-01-16 16:08 | disposition home or self-care (01) ==
PROVIDERS: Emergency Provider Emergency Medicine; PCP Nurse Practitioner Adult Health
DX: N30.90 Cystitis, unspecified without hematuria (principal)
CPT/HCPCS: 99283 ×2; 81025; 81003; 81015

== ENCOUNTER 2025-01-23 23:01 | Emergency (ER) | payer MEDICAID, SELFPAY ==
[2025-01-23 23:09] VITALS: BP 148/104; PULSE 71; RESP 18; TEMP 36.7; O2SAT 97
[2025-01-23 23:16] LABS: Glucose Negative (Negative)
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
[2025-01-24] MEDS: Fosfomycin Tromethamine 3 GM PACKET PO (00:13)
[2025-01-24] MEDS: Doxycycline Hyclate 100 MG, 2 CAPS/BTL PO (00:15)
[2025-01-24] MEDS: Fluconazole 150 MG TAB PO (00:43)
[2025-01-24 00:48] VITALS: BP 142/95; PULSE 64; RESP 18; O2SAT 98
[2025-01-25 11:45] LABS: Chlamydia Result Negative (Negative); GC Result Negative (Negative)
--- NOTE | 2025-01-27 13:03 | NUR.NOTE ---
Nursing Note: Received call from patient looking for GC/Chlamydia- pt notified of negative results
== END 2025-01-24 00:49 | disposition home or self-care (01) ==
PROVIDERS: Emergency Provider Student in an Organized Health Care Education/Training Program; PCP Nurse Practitioner Adult Health
DX: B37.31 Acute candidiasis of vulva and vagina (principal); N39.0 Urinary tract infection, site not specified
CPT/HCPCS: 87491; 87591; 99283; 81003; 81015; 87086; 87480; 87510; 87660; J3490